=== PATIENT | male | born 1960 | race Caucasian/White ===

== ENCOUNTER 2019-06-12 07:06 | Outpatient (CLI) | payer BC ==
[2019-06-12 09:31] LABS: #Eosinphils 0.2 thou/uL (0.0-0.7); #Lymphocytes 1.8 thou/uL (1.20-3.40); #Monocytes 0.6 thou/uL (0.11-0.59); #Neutrophils 3.5 thou/uL (1.40-6.50); %Basophils 0.8 % (0.0-1.0); %Eosinophils 3.6 % (0.0-10.0); %Lymphocytes 28.5 % (21.0-51.0); %Monocytes 9.9 % (0.0-10.0); %Neutrophils 57.2 % (42.0-75.0); Hemoglobin 15.1 g/dL (14.0-18.0); Mean Corpuscular HGB CONC 34.5 g/dL (32.0-36.0); Mean Corpuscular Hemoglobin 32.1 pg (27.0-31.0); Mean Corpuscular Volume 93.1 fL (78.0-98.0); Mean Platelet Volume 9.6 fL (7.4-10.4); Platelet Count 172 thou/uL (130-400); RBC Distribution Width 11.6 % (11.5-14.5); Red Blood Cell (RBC) Count 4.72 mill/uL (4.70-6.10); White Blood Cell (WBC) Count 6.2 thou/uL (4.8-10.8)
[2019-06-12 09:41] LABS: PTT 28.5 SEC (22.9-36.1)
[2019-06-12 09:43] LABS: Prothrombin Time 13.4 SEC (12.0-14.7)
[2019-06-12 09:54] LABS: ALT (SGPT) 36 U/L (8-55); AST (SGOT) 21 U/L (5-34); Albumin 4.1 g/dL (3.4-4.8); Alkaline Phosphatase 74 U/L (40-110); Anion Gap 11 mmol/L (10-20); BUN (Urea Nitrogen) 17 mg/dL (8.4-25.7); Bilirubin, Total 0.3 mg/dL (0.2-1.2); Calc. Creatinine Clearance 0 mL/min (70-130); Calcium 9.4 mg/dL (7.8-10.44); Carbon Dioxide 27 mmol/L (23-31); Cardiac Risk 4.2 (Less than 4.5); Chloride 107 mmol/L (98-107); Cholesterol 137 mg/dl (< 200 Desired); Estimated GFR-MDRD 79; Globulin 2.5 g/dL (2.4-3.5); Glucose 107 mg/dL (80-115); HDL Cholesterol 33 mg/dL (>60 Neg Risk); LDL Cholesterol, Calculated 73 mg/dL; Potassium 4.2 mmol/L (3.5-5.1); Protein, Total 6.6 g/dL (5.8-8.1); Sodium 141 mmol/L (136-145); Triglycerides 154 mg/dL (Less than 150)
[2019-06-12 10:12] LABS: Thyroid Stimulating Hormone 1.2235 uIU/mL (0.35-4.94)
== END 2019-06-12 07:07 | disposition home or self-care (01) ==
LOC: LABBT 07:06
PROVIDERS: ATTEND Internal Medicine Cardiovascular Disease
DX: Z01.818 Encounter for other preprocedural examination (principal); I48.91 Unspecified atrial fibrillation
CPT/HCPCS: 80053; 80061; 84439; 84443; 85025; 85610; 85730; 93005; 93010

== ENCOUNTER → 2019-06-14 | Day surgery (SDC) | payer BC ==
[2019-06-12 08:39] VITALS: BMI 31.9
== END ==
LOC: CCL 06:13
PROVIDERS: ATTEND Internal Medicine Cardiovascular Disease
DX: R07.9 Chest pain, unspecified (principal); Z53.9 Procedure and treatment not carried out, unspecified reason; I48.1 Persistent atrial fibrillation; I10 Essential (primary) hypertension; Z79.01 Long term (current) use of anticoagulants; Z87.891 Personal history of nicotine dependence

== ENCOUNTER 2020-05-22 07:09 | Outpatient (CLI) | payer BC, OTHER ==
[2020-05-22 12:16] LABS: Hemoglobin 15.9 g/dL (14.0-18.0); Mean Corpuscular HGB CONC 32.9 g/dL (32.0-36.0); Mean Corpuscular Volume 97.4 fL (78.0-98.0); Mean Platelet Volume 10.1 fL (7.4-10.4); Platelet Count 184 thou/uL (130-400); RBC Distribution Width 11.9 % (11.5-14.5); Red Blood Cell (RBC) Count 4.96 mill/uL (4.70-6.10); White Blood Cell (WBC) Count 6.6 thou/uL (4.8-10.8)
[2020-05-22 12:29] LABS: INR-International Normal Ratio 0.9; PTT 30.1 sec (22.9-36.1); Prothrombin Time 12.6 sec (12.0-14.7)
[2020-05-22 12:51] LABS: Anion Gap 12 mmol/L (10-20); BUN (Urea Nitrogen) 20 mg/dL (8.4-25.7); Calc. Creatinine Clearance 0 mL/min (70-130); Calcium 9.3 mg/dL (7.8-10.44); Carbon Dioxide 26 mmol/L (23-31); Chloride 107 mmol/L (98-107); Estimated GFR-MDRD 82; Glucose 101 mg/dL (80-115); Potassium 4.8 mmol/L (3.5-5.1); Sodium 140 mmol/L (136-145)
[2020-05-22 16:38] LABS: SARS-CoV-2 MS2 Positive; SARS-CoV-2 N Gene Negative; SARS-CoV-2 S Gene Negative; SARS-CoV-2 by NAA Not Detected (NotDetected); SARS-CoV-2 orf1ab Negative
== END 2020-05-22 07:10 | disposition home or self-care (01) ==
LOC: LABBT 07:09
PROVIDERS: ATTEND Internal Medicine Cardiovascular Disease
DX: Z01.818 Encounter for other preprocedural examination (principal); I48.91 Unspecified atrial fibrillation; Z20.828 Contact with and (suspected) exposure to other viral communicable diseases
CPT/HCPCS: 80048; 85027; 85610; 85730; 87635; 93005; 93010; U0003

== ENCOUNTER 2020-05-27 08:00 | Observation (INO) | payer BC ==
[2020-05-27] MEDS ORDERED: Rocuronium Bromide 10 MG/ML (10ML VIAL) ONE (10:39)
[2020-05-27] MEDS ORDERED: Glycopyrrolate 0.2 MG/ML 5 ML SYRINGE ONE (10:39)
[2020-05-27] MEDS ORDERED: Ondansetron PF 4 MG/2 ML Vial ONE (10:39)
[2020-05-27] MEDS ORDERED: PROPOFOL 200 MG/20 ML VIAL ONE (10:39)
[2020-05-27] MEDS ORDERED: Lidocaine 1% PF 5 ML VIAL ONE (10:39)
[2020-05-27] MEDS ORDERED: Dexamethasone 20 MG/5 ML VIAL ONE (10:39)
[2020-05-27] MEDS ORDERED: PHENYLEPHRINE-NS 100 MCG/ML 10 ML SYRINGE ONE (10:39)
[2020-05-27] MEDS ORDERED: Heparin 10,000 UNITS/ 10 ML VIAL ONE ×3 (11:11→14:00)
[2020-05-27] MEDS ORDERED: Heparin 25,000 units/D5W 500 ML ONE (11:18)
[2020-05-27] MEDS ORDERED: Fentanyl 100 MCG/2 ML VIAL ONE ×2 (11:18→16:15)
[2020-05-27] MEDS ORDERED: Phenylephrine 10 MG/ML VIAL ONE (12:59)
[2020-05-27] MEDS ORDERED: Isoproterenol 0.2 MG/1 ML AMP ONE (14:00)
[2020-05-27] MEDS ORDERED: Protamine Sulfate 50 MG/5 ML VIAL ONE (15:03)
[2020-05-27] MEDS ORDERED: SUGAMMADEX SODIUM 200 MG/2 ML VIAL ONE (15:22)
[2020-05-27] MEDS ORDERED: Ketorolac Tromethamine 30 MG/ML VIAL IVP PRN (16:34)
[2020-05-27] MEDS ORDERED: Amiodarone 150 MG, Admixture Fee 1 EACH in Dextrose 5% in Water 100 ML IVPB SCH (17:00)
[2020-05-27 18:10] VITALS: BMI 32.3
--- NOTE | 2020-05-27 20:36 | OP ---
DATE OF PROCEDURE: 05/27/2020 PROCEDURE PERFORMED: Electrophysiology study and radiofrequency ablation. REASON FOR PROCEDURE: Mr. Piper is a 60-year-old male with prior history of paroxysmal atrial fibrillation/flutter. He is here for a pulmonary venous isolation procedure. DESCRIPTION OF PROCEDURE: The patient received general anesthesia by Anesthesia specialist. The left and right femoral vein was prepped, draped, and anesthetized using subcutaneous lidocaine. Under ultrasound guidance, both femoral veins were accessed x2. On the left side, an 11-Emirati sheath was used to advance an intracardiac echocardiogram probe to the right atrium, which was used in turn to monitor the transeptal procedure, the catheter manipulation, and the pericardial space. Also from the left femoral vein, a Preface sheath was used to advance a 20 pole Duo-Deca catheter to the right atrium and CS position. On the right femoral veins, initially two 8-Emirati short sheaths were introduced through which a ThermoCool SFST catheter was used to obtain 3D map of the right atrium. CS, His bundle and cavotricuspid isthmus were well delineated. Following that, basic EP study was performed with the following findings. Baseline rhythm was sinus rhythm, cycle length of 808 milliseconds, UT 185 milliseconds, QRS 82 milliseconds, QT 380 milliseconds, HV interval was 50 milliseconds. Sinus node recovery time corrected was 400 milliseconds. AV Wenckebach cycle length was 360 milliseconds. Retrograde Wenckebach cycle length was checked was less than 300 milliseconds. Concentric retrograde VA conduction was seen. Burst atrial pacing was able to induce atrial fibrillation and not atrial flutter. The right femoral venous sheaths were exchanged to two SL1 sheaths and IV heparin was administered at bolus and drip fashion. ACT was regularly checked and heparin was adjusted to target ACT over 350. With the help of a ThermoAura transseptal power needle under ultrasound and fluoroscopic guidance, transseptal puncture was performed x2. Through SL1 sheaths, a ThermoCool SFST catheter and a 20-pole Lasso catheter were advanced to left atrium. 3D map of the left atrium was obtained. Standard pulmonary venous isolation was performed on all 4 pulmonary veins. Also, roof line and inferior posterior line were drawn to achieve posterior wall isolation. Throughout the posterior wall conde, esophageal temperatures were closely monitored to avoid excessive heating and any temperature rise was met with additional high-flow irrigation. Following this, the ablation catheter was advanced to the left ventricle and left ventricular pacing was performed. No accessory pathway was found. Isuprel was administered also at this time at 20 mcg for 10 minutes. Re-connections to pulmonary veins were re-ablated. Posterior wall also remained isolated. Burst atrial pacing on Isuprel induced an atypical atrial flutter, which was not stable in morphology eventually was cardioverted. Throughout the case, inspection by the right superior pulmonary vein, high output pacing was performed to assess for proximity of the phrenic nerve, but no phrenic nerve stimulation was seen. Baseline left elevated hemidiaphragm was noted. Cardiac silhouette did not change with the procedure. The intracardiac echocardiogram probe showed no pericardial effusion pre and post procedure. At the end of the case, the long sheaths were exchanged to short sheath and a Vascade closure was performed in all four femoral venous access sites. The protamine was also administered to reverse the IV heparin effect. CONCLUSION: 1. Successful isolation of all 4 pulmonary veins as well as the posterior wall with roof and inferoposterior line. 2. Normal AV bernie sinus bernie function. No evidence of accessory pathway. 3. Normal His-Purkinje function. 4. Plan routine postop care. Resume oral anticoagulants. Monitor for recurrent atrial arrhythmias. Job ID: [id number]
[2020-05-27] MEDS ORDERED: Ezetimibe 10 MG TAB PO SCH (21:00)
[2020-05-27] MEDS ORDERED: Atorvastatin Calcium 10 MG TAB PO SCH (21:00)
[2020-05-27] MEDS: Apixaban 5 MG TAB PO SCH (21:29)
[2020-05-28] MEDS ORDERED: Mometasone 100 MCG/Formoterol 5 MCG 120 PUFF INHALER INH SCH ×2 (06:30)
[2020-05-28 07:51] VITALS: BP 137/89; TEMP 97.5
[2020-05-28] MEDS: Apixaban 5 MG TAB PO SCH (07:58)
[2020-05-28] MEDS ORDERED: Aspirin 81 mg Enteric Coated Tablet PO SCH (09:00)
[2020-05-28] MEDS ORDERED: Multivit, Therapeutic 1 TAB PO SCH (09:00)
[2020-05-28] MEDS ORDERED: Losartan 25 MG TAB PO SCH (09:00)
--- NOTE | 2020-05-28 23:40 | EKG ---
Test Reason : Blood Pressure : / mmHG Vent. Rate : 136 BPM Atrial Rate : 136 BPM P-R Int : 104 ms QRS Dur : 092 ms QT Int : 358 ms P-R-T Axes : 000 042 037 degrees QTc Int : 538 ms Sinus tachycardia with short GA Possible atrial flutter with 2:1 block Otherwise normal ECG When compared with ECG of 22-MAY-2020 09:14, Sinus rhythm has replaced Atrial fibrillation Confirmed by Nadja GARCIA ([id number]) on 05/28/2020 11:39:54 PM Referred By: [facility] Confirmed By:Nadja GARCIA
--- NOTE | 2020-05-28 23:46 | EKG ---
Test Reason : Blood Pressure : / mmHG Vent. Rate : 092 BPM Atrial Rate : 092 BPM P-R Int : 172 ms QRS Dur : 098 ms QT Int : 364 ms P-R-T Axes : 038 056 054 degrees QTc Int : 450 ms Normal sinus rhythm Normal ECG When compared with ECG of 27-MAY-2020 16:11, (Unconfirmed) No significant change was found Confirmed by Nadja GARCIA ([id number]) on 05/28/2020 11:45:26 PM Referred By: [facility] Confirmed By:Nadja GARCIA
--- NOTE | 2020-05-29 03:41 | DIS ---
DATE OF ADMISSION: 05/27/2020 DATE OF DISCHARGE: 05/28/2020 23-hour observation. DIAGNOSIS: Persistent atrial fibrillation. HISTORY OF PRESENT ILLNESS: This is a 60-year-old gentleman with a history of persistent atrial fibrillation, previously on flecainide. He was taken to the EP lab for pulmonary venous isolation/ablation, which was performed on 05/27/2020. He also had posterior wall and inferoposterior line ablated. He has maintained sinus rhythm overnight and has had no post ablation complications. He is ambulating without difficulty, tolerating p.o. intake, and has no chest discomfort or shortness of breath. Total ablation time approximately 20 minutes. At the end of the case, burst pacing-induced atypical atrial flutter, unstable in morphology and required cardioversion. 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 SUBJECTIVE: Mr. Piper feels well. He is eager to go home and voices no cardiac concerns or complaints. He voices no bleeding or pain at his groin sites, shortness of breath, heart racing, palpitations, stroke, or stroke-like symptoms. OBJECTIVE: VITAL SIGNS: Temperature 97.5, pulse 96, blood pressure 137/89, respirations 20, oxygen 94% on room air. GENERAL: The patient is in stable condition visibly. EXTREMITIES: Bilateral groin sites are stable without any evidence of hematoma or bleeding complication. NEUROLOGIC: Grossly intact and gait is stable. DISCHARGE MEDICATIONS: Include resuming home medications of: 1. Vytorin at bedtime. 2. Biotin daily. 3. Sildenafil as needed. 4. Metoprolol succinate 25 mg at bedtime. 5. Losartan potassium 50 mg daily. 6. Flonase as needed. 7. . 8. CoQ10 daily. 9. Tylenol as needed. 10. Aspirin 81 mg daily. 11. Vitamin C 100 mg daily. 12. Eliquis 5 mg p.o. b.i.d. 13. Symbicort two puffs b.i.d. New prescription: 1. Carafate 1 g q.i.d. x2 weeks. 2. Protonix 40 mg p.o. daily for 30 days, then they resume his home dose of Prilosec. 3. Furosemide 40 mg p.o. daily x2 days, then as needed for fluid retention symptoms, to be taken with K-Dur 20 mEq. Discontinued medication is flecainide. DISCHARGE INSTRUCTIONS: Take Eliquis without interruption. Contact [facility] with any postablation concerns or questions. Follow up in 6 weeks or sooner if symptoms dictate. CONDITION AT DISCHARGE: Stable. Job ID: [id number]
== END 2020-05-28 11:31 | disposition home or self-care (01) ==
LOC: CCL 08:00 → 2SW 18:14
PROVIDERS: ADMIT Internal Medicine Cardiovascular Disease; ATTEND Internal Medicine Cardiovascular Disease
PROC: 4A023FZ Measurement of Cardiac Rhythm, Percutaneous Approach (ICD-10-PCS; principal; 2020-05-27)
PROC: 4A0234Z Measurement of Cardiac Electrical Activity, Percutaneous Approach (ICD-10-PCS; 2020-05-27)
PROC: 02583ZZ Destruction of Conduction Mechanism, Percutaneous Approach (ICD-10-PCS; 2020-05-27)
PROC: 02K83ZZ Map Conduction Mechanism, Percutaneous Approach (ICD-10-PCS; 2020-05-27)
DX: I48.19 Other persistent atrial fibrillation (principal); E78.5 Hyperlipidemia, unspecified; I47.1 Supraventricular tachycardia; I10 Essential (primary) hypertension; G47.33 Obstructive sleep apnea (adult) (pediatric); K21.9 Gastro-esophageal reflux disease without esophagitis; Z79.01 Long term (current) use of anticoagulants; Z79.82 Long term (current) use of aspirin; Z79.899 Other long term (current) drug therapy; Z87.891 Personal history of nicotine dependence
CPT/HCPCS: 76942; 85347; 92960; 93005; 93010; 93613; 93622; 93623; 93656; 93657; 93662; C1732; C1759; C1884; G0378; J0282; J1100; J1644; J2370; J2405; J2704; J2720; J3010; J7070

== ENCOUNTER 2022-05-26 14:58 | Emergency (ER) | payer BC ==
[2022-05-26 15:39] LABS: Hemoglobin 15.1 g/dL (14.0-18.0); Mean Corpuscular Hemoglobin 32.3 pg (27.0-31.0); Mean Corpuscular Volume 94.9 fL (78.0-98.0); Mean Platelet Volume 9.9 fL (7.4-10.4); Platelet Count 160 thou/uL (130-400); RBC Distribution Width 12.2 % (11.5-14.5); Red Blood Cell (RBC) Count 4.66 mill/uL (4.70-6.10); White Blood Cell (WBC) Count 6.9 thou/uL (4.8-10.8)
[2022-05-26 15:56] LABS: Band 1 % (5-11); Lymphocytes 10 % (21-51); MDiff Complete? YES; Monocytes 11 % (0-10); Neutrophil 69 % (42-75); Platelet Morphology Comment Appears Adequate; Polychromasia SLIGHT = 2-3 cells (100X) (0-2/hpf); Reactive Lymphocytes 9 % (0-10)
[2022-05-26 16:00] LABS: ALT (SGPT) 67 U/L (8-55); AST (SGOT) 32 U/L (5-34); Albumin 4.3 g/dL (3.4-4.8); Alkaline Phosphatase 95 U/L (40-110); Anion Gap 15 mmol/L (10-20); BUN (Urea Nitrogen) 17 mg/dL (8.4-25.7); Bilirubin, Total 0.4 mg/dL (0.2-1.2); CK (CPK) 71 U/L (30-200); Calc. Creatinine Clearance 0 mL/min (70-130); Calcium 9.5 mg/dL (7.8-10.44); Carbon Dioxide 24 mmol/L (23-31); Chloride 105 mmol/L (98-107); Estimated GFR 87; Globulin 2.9 g/dL (2.4-3.5); Glucose 109 mg/dL (80-115); Lipase 44 U/L (8-78); Protein, Total 7.2 g/dL (5.8-8.1); Sodium 140 mmol/L (136-145)
[2022-05-26] MEDS ORDERED: Iopamidol-370 76% 500 ML 1 ML ONE (16:03)
== END 2022-05-26 17:45 | disposition home or self-care (01) ==
LOC: ERS 14:58
DX: U07.1 COVID-19 (principal); I10 Essential (primary) hypertension; I48.91 Unspecified atrial fibrillation
CPT/HCPCS: 36415; 71275; 80053; 82550; 83690; 83880; 84484; 85025; 93005; 94760; Q9967